=== PATIENT | female | born 1995 | race Caucasian/White ===

== ENCOUNTER 2017-01-01 18:16 | Emergency (ER) | payer OTHER ==
[2017-01-01 20:30] LABS: Basophils % (A) 0 %; CH 32.4; CHCM 35.8; Eosinophils # (A) 0.3 k/uL (0-0.7); Eosinophils % (A) 4 %; HCT 40.8 % (34.0-46.0); HDW 2.73; HGB 14.4 gm/dL (11.4-16.0); Luc % (Auto) 3; Lymphocytes # (A) 1.7 k/uL (1.0-4.8); Lymphocytes % (A) 21 %; MCH 32.1 pg (25.0-35.0); MCHC 35.4 g/dL (31.0-37.0); MCV 90.8 fL (80.0-100.0); Mean Platelet Volume 6.9; Monocytes # (A) 0.4 k/uL (0-1.0); Monocytes % (A) 6 %; Neutrophils # (A) 5.4 k/uL (1.3-7.7); Neutrophils % (A) 66 %; RBC 4.49 m/uL (3.80-5.40); RDW 12.5 % (11.5-15.5); WBC 8.1 k/uL (3.8-10.6); WBC (Perox) 8.04
[2017-01-01 20:39] LABS: Appearance,Urine Cloudy (Clear); Bacteria,Urine Occasional /hpf; Bilirubin,Urine Negative (Negative); Glucose,Urine (UA) Negative (Negative); Ketones,Urine Negative (Negative); Leukocyte Esterase,Urine Trace (Negative); Mucus,Urine Few /hpf; Nitrite,Urine Negative (Negative); PH, Urine 5.5 (5.0-8.0); Particle Count 12595; Protein,Urine 1+ (Negative); RBC,Urine >182 /hpf (0-5); Specific Gravity,Urine 1.019 (1.001-1.035); Squamous Epithelial Cell,Urine 7 /hpf (0-4); UA Billing (MACRO vs. MICRO) MICRO; Urobilinogen,Urine <2.0 mg/dL (<2.0); WBC,Urine 17 /hpf (0-5)
--- NOTE | 2017-01-01 21:05 | US ---
EXAMINATION TYPE: US transvaginal DATE OF EXAM: 01/01/2017 COMPARISON: NONE CLINICAL HISTORY: Pain. Bleeding for 10 days, left side discomfort. Hx of TECHNIQUE: Transvaginal (TV) with color Doppler. Date of LMP: 12/22/2016, EXAM MEASUREMENTS: Uterus: 7.8 x 6.8 x 4.6 cm Endometrial Stripe: 0.5 cm Right Ovary: 2.4 x 2.5 x 2.0 cm Left Ovary: 2.6 x 1.5 x 1.5 cm 1. Uterus: Anteverted wnl 2. Endometrium: wnl 3. Right Ovary: hypoechoic lesion - 1.4 x 1.5 x 1.3 cm 4. Left Ovary: follicles Spectral, color and waveform doppler imaging shows good arterial and venous flow within the ovaries ; there is no evidence for ovarian torsion. 5. Bilateral Adnexa: free fluid seen adjacent to RO 6. Posterior cul-de-sac: free fluid IMPRESSION: There is a small amount of free fluid in the cul-de-sac. Normal uterus and endometrium. B ilateral follicular ovarian cysts.
--- NOTE | 2017-01-01 21:17 | ED ---
Female Urogenital HPI - General Chief complaint: Urogenital Stated complaint: Vaginal Bleeding Time Seen by Provider: 01/01/17 19:29 Source: patient, RN notes reviewed, old records reviewed Mode of arrival: ambulatory Limitations: no limitations - History of Present Illness Initial comments: This is a 21-year-old female presenting to the emergency department with chief complaint of vaginal bleeding for the past 10 days. Patient reports that she's been feeling a little lightheaded. She reports that she's never had a period last this long. Patient states that she has been in the past. Denies any chest at this time. Patient reports no fever or chills, abdominal pain besides cramping, nausea or vomiting or changes in urination or bowel movements. Last Menstrual Period: 12/22/16 - Related Data Previous Rx's Medication Instructions Recorded Ferrous Sulfate [Feosol] 325 mg PO DAILY #30 tab 01/01/17 Allergies Allergy/AdvReac Type Severity Reaction Status Date / Time No Known Allergies Allergy Verified 01/01/17 19:18 Review of Systems ROS Statement: Those systems with pertinent positive or pertinent negative responses have been documented in the HPI. ROS Other: All systems not noted in ROS Statement are negative. Past Medical History Past Medical History: No Reported History History of Any Multi-Drug Resistant Organisms: None Reported Past Surgical History: Section Past Anesthesia/Blood Transfusion Reactions: Unable to Obtain Past Psychological History: Anxiety Smoking Status: Current every day smoker Past Alcohol Use History: None Reported Past Drug Use History: Marijuana - Past Family History Mother History Unknown: Yes Family Medical History: Hypertension General Exam - General Exam Comments Initial Comments: Well-appearing 21-year-old female. No acute distress. Limitations: no limitations General appearance: alert, in no apparent distress Head exam: Present: atraumatic, normocephalic, normal inspection Eye exam: Present: normal appearance, PERRL, EOMI. Absent: scleral icterus, conjunctival injection, periorbital swelling ENT exam: Present: normal exam, mucous membranes moist Neck exam: Present: normal inspection. Absent: tenderness, meningismus, lymphadenopathy Respiratory exam: Present: normal lung sounds bilaterally. Absent: respiratory distress, wheezes, rales, rhonchi, stridor Cardiovascular Exam: Present: regular rate, normal rhythm, normal heart sounds. Absent: systolic murmur, diastolic murmur, rubs, gallop, clicks GI/Abdominal exam: Present: soft, normal bowel sounds. Absent: distended, tenderness, guarding, rebound, rigid Extremities exam: Present: normal inspection, full ROM, normal capillary refill. Absent: tenderness, pedal edema, joint swelling, calf tenderness Back exam: Present: normal inspection Neurological exam: Present: alert, oriented X3, CN II-XII intact Psychiatric exam: Present: normal affect, normal mood Skin exam: Present: warm, dry, intact, normal color. Absent: rash Course Vital Signs 01/01/17 01/01/17 18:36 21:48 Temperature 99.2 F 98.1 F Pulse Rate 107 H 86 Respiratory 18 16 Rate Blood Pressure 130/73 101/61 O2 Sat by Pulse 98 98 Oximetry Medical Decision Making - Medical Decision Making This is a 21-year-old female presenting to the emergency department with chief complaint of vaginal bleeding for the past 10 days. Patient reports that she's been feeling a little lightheaded. She reports that she's never had a period last this long. Patient states that she has been in the past. Denies any chest at this time. Patient reports no fever or chills, abdominal pain besides cramping, nausea or vomiting or changes in urination or bowel movements. Pt CBC was normal, stable hemaglobin and vital signs. Patient transvaginal US was unremarkable. Advised to follow up with PCP and PBGYN. Patient understands treatment plan and will comply. - Lab Data Result diagrams: 01/01/17 20:10 Lab Results 01/01/17 01/01/17 01/01/17 Range/Units 20:10 20:10 20:10 WBC 8.1 (3.8-10.6) k/uL RBC 4.49 (3.80-5.40) m/uL Hgb 14.4 (11.4-16.0) gm/dL Hct 40.8 (34.0-46.0) % MCV 90.8 (80.0-100.0) fL MCH 32.1 (25.0-35.0) pg MCHC 35.4 (31.0-37.0) g/dL RDW 12.5 (11.5-15.5) % Plt Count 251 (150-450) k/uL Neutrophils % 66 % Lymphocytes % 21 % Monocytes % 6 % Eosinophils % 4 % Basophils % 0 % Neutrophils # 5.4 (1.3-7.7) k/uL Lymphocytes # 1.7 (1.0-4.8) k/uL Monocytes # 0.4 (0-1.0) k/uL Eosinophils # 0.3 (0-0.7) k/uL Basophils # 0.0 (0-0.2) k/uL Urine Color Light Red Urine Appearance Cloudy H (Clear) Urine pH 5.5 (5.0-8.0) Ur Specific [place] 1.019 (1.001-1.035) Urine Protein 1+ H (Negative) Urine Glucose (UA) Negative (Negative) Urine Ketones Negative (Negative) Urine Blood Large H (Negative) Urine Nitrite Negative (Negative) Urine Bilirubin Negative (Negative) Urine Urobilinogen <2.0 (<2.0) mg/dL Ur Leukocyte Esterase Trace H (Negative) Urine RBC >182 H (0-5) /hpf Urine WBC 17 H (0-5) /hpf Ur Squamous Epith Cells 7 H (0-4) /hpf Urine Bacteria Occasional H (None) /hpf Urine Mucus Few H (None) /hpf Urine HCG, Qual Detected (Not Detectd) - Radiology Data Radiology results: report reviewed Transvaginal US is unremarkable. Disposition Clinical Impression: Abnormal uterine bleeding Disposition: HOME SELF-CARE Condition: Good Instructions: Dysfunctional Uterine Bleeding (ED) Additional Instructions: Patient advised to rest, remain hydrated. Take the iron vitamins. Return to the emergency department if any alarming signs or symptoms occur. Follow-up with your primary care provider within the next week if symptoms continue to persist. Prescriptions: Ferrous Sulfate [Feosol] 325 mg PO DAILY #30 tab Referrals: None,Stated [Primary Care Provider] - 1-2 days Susan Devries DO [Doctor of Osteopathic Medicine] - 1-2 days Time of Disposition: 21:36
[2017-01-01 21:49] VITALS: BP 101/61; PULSE 86; RESP 16; TEMP 98.1
== END 2017-01-01 22:07 | disposition home or self-care (01) ==
LOC: EC 18:16
DX: N93.9 Abnormal uterine and vaginal bleeding, unspecified (principal); F17.200 Nicotine dependence, unspecified, uncomplicated
CPT/HCPCS: 36415; 76830; 81001; 81025; 85025; 93975; 99284

== ENCOUNTER 2017-10-12 06:11 | Inpatient (IN) | payer BC ==
--- NOTE | 2017-10-11 21:15 | P.HPOB ---
History of Present Illness H&P Date: 10/11/17 Chief Complaint: Scheduled repeat section This is a 21 y.o. female, 2, para 1, with an estimated date of confinement of 10/15/2017, estimated gestational age of 39-4/7 weeks, who presents for scheduled repeat section. Her has been complicated by gestational diabetes diet controlled. She did have a gap in her care from 31 to 38 weeks, stating she was busy working. labs: Hepatitis B surface antigen-neg Rubella-immune Blood type-O neg Antibody screen-neg RPR-NR HIV-NR Hemoglobin-12.7 Quad screen-neg Random glucose-75 OB US-normal anatomy 1 hr. GTT-146; 3 hr. GTT-2 values high Rhogam given at 28 weeks GBS-neg OB Hx: . 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 Review of Systems Constitutional: Denies chills, Denies fever Eyes: denies blurred vision, denies pain Ears, nose, mouth and throat: Denies headache, Denies sore throat Cardiovascular: Denies chest pain, Denies shortness of breath Respiratory: Denies cough Gastrointestinal: Denies abdominal pain, Denies diarrhea, Denies nausea, Denies vomiting Genitourinary: Reports pelvic pain, Reports Musculoskeletal: Reports low back pain Integumentary: Denies pruritus, Denies rash Neurological: Denies numbness, Denies weakness Psychiatric: Denies anxiety, Denies depression Past Medical History Additional Past Medical History / Comment(s): Gestational diabetes-diet controlled History of Any Multi-Drug Resistant Organisms: None Reported Past Surgical History: Section Past Anesthesia/Blood Transfusion Reactions: No Reported Reaction Past Psychological History: No Psychological Hx Reported Smoking Status: Current every day smoker Past Alcohol Use History: None Reported Past Drug Use History: None Reported - Past Family History Mother History Unknown: Yes Family Medical History: Hypertension Medications and Allergies Home Medications Medication Instructions Recorded Confirmed Type Pnv No.95/Ferrous Fum/Folic AC 1 each PO DAILY 10/08/17 10/08/17 History [ Multivitamin Tablet] Allergies Allergy/AdvReac Type Severity Reaction Status Date / Time No Known Allergies Allergy Verified 10/08/17 15:00 Exam Osteopathic Statement: *. No significant issues noted on an osteopathic structural exam other than those noted in the History and Physical/Consult. HEENT: within normal limits Heart: regular rate and rhythm Lungs: clear to auscultation bilaterally Abdomen: soft, , non-tender Cervix: 1 cm/uneffaced/-2 heart tones: reactive Extremities: Neg. Adolph's. Assessment and Plan (1) 39 weeks gestation of Status: Acute Code(s): Z3A.39 - 39 WEEKS GESTATION OF SNOMED Code( s): 52018569 (2) Previous delivery affecting Status: Acute Code(s): O34.219 - MATERNAL CARE FOR UNSP TYPE SCAR FROM PREVIOUS DEL SNOMED Code(s): 070735327 (3) Gestational diabetes mellitus (GDM) Status: Acute Code(s): O24.419 - GESTATIONAL DIABETES MELLITUS IN , UNSP CONTROL SNOMED Code(s): 56941428 Plan: Proceed with repeat section. I have discussed the risks, benefits, and alternative therapies for the above- mentioned procedure and for both sedation/anesthesia as well as necessary blood products administration, if indicated, as they pertain to this patient. The patient has indicated her understanding and acceptance of the risks and procedures discussed.
[2017-10-12] MEDS ORDERED: ceFAZolin IN SWFI 2 GM/20 ML SYRINGE IVP ONE (06:20)
[2017-10-12] MEDS ORDERED: LACTATED RINGERS 1,000 ML IV ONE (06:20)
[2017-10-12] MEDS ORDERED: LIDOCAINE 1% 20 ML VIAL (10MG/ML) FOR IV START INTRADERMA PRN (06:20)
[2017-10-12] MEDS ORDERED: CITRIC ACID-SODIUM CITRATE 15 ML CUP PO ONE (06:20)
[2017-10-12 06:35] VITALS: BMI 27.4
[2017-10-12 06:43] LABS: Glucose,Whole Blood 107 mg/dL (75-99)
[2017-10-12 06:51] LABS: Basophils % (A) 0 %; Eosinophils # (A) 0.2 k/uL (0-0.7); Eosinophils % (A) 1 %; HCT 35.9 % (34.0-46.0); Hyperchromasia Slight; Lymphocytes % (A) 16 %; MCH 32.6 pg (25.0-35.0); MCHC 36.3 g/dL (31.0-37.0); MCV 89.8 fL (80.0-100.0); Mean Platelet Volume 8.2; Monocytes # (A) 0.6 k/uL (0-1.0); Monocytes % (A) 5 %; Neutrophils % (A) 76 %; Platelet Count 231 k/uL (150-450); RBC 3.99 m/uL (3.80-5.40); RDW 13.5 % (11.5-15.5); WBC 13.1 k/uL (3.8-10.6)
[2017-10-12] MEDS: LACTATED RINGERS 1,000 ML IV SCH ×2 (07:47→14:44)
[2017-10-12] MEDS ORDERED: ONDANSETRON 4 MG/2 ML VIAL ONE (07:55)
[2017-10-12] MEDS ORDERED: NALBUPHINE 10 MG/ML AMPUL ONE (07:55)
[2017-10-12] MEDS ORDERED: OXYTOCIN 10 UNIT/ML 1 ML VIAL ONE (07:55)
[2017-10-12] MEDS ORDERED: MORPHINE SULFATE (PF) 0.3 MG/0.3 ML SYR ONE (07:55)
[2017-10-12] MEDS ORDERED: KETOROLAC 30 MG/ML 1 ML VIAL ONE (07:55)
[2017-10-12] MEDS ORDERED: ONDANSETRON 4 MG/2 ML VIAL IVP PRN ×2 (08:26→09:49)
[2017-10-12] MEDS ORDERED: KETOROLAC 30 MG/ML 1 ML VIAL IVP PRN (08:26)
[2017-10-12] MEDS ORDERED: MORPHINE SULFATE/PF 10MG/10ML VL IVP PRN (08:26)
[2017-10-12] MEDS ORDERED: diphenhydrAMINE 50 MG/ML 1 ML VIAL IVP PRN ×3 (08:26→09:49)
[2017-10-12] MEDS ORDERED: NALOXONE 0.4 MG/ML 1 ML VIAL IV PRN ×2 (08:26→09:49)
--- NOTE | 2017-10-12 08:43 | P.OP ---
Date of Procedure: 10/12/17 Preoperative Diagnosis: 1. Intrauterine at 39-4/7 weeks. 2. History of previous section. 3. Gestational diabetes. Postoperative Diagnosis: Same Procedure(s) Performed: Repeat low transverse section Anesthesia: spinal (Duramorph) Surgeon: Susan Devries Lock Installer #1: Juan Dukes Estimated Blood Loss (ml): 350 Pathology: other (Placenta) Condition: stable Disposition: floor Indications for Procedure: This is a 21-year-old female 2 para 1 at 39-4/7 weeks who presents for scheduled repeat section secondary to history of previous section. She also had complicated by gestational diabetes diet controlled. I have discussed the risks, benefits, and alternative therapies for the above- mentioned procedure and for both sedation/anesthesia as well as necessary blood products administration, if indicated, as they pertain to this patient. The patient has indicated her understanding and acceptance of the risks and procedures discussed. Operative Findings: A viable male infant is noted in the vertex presentation with scores of 9 at 1 minute and 9 at 5 minutes and weight of 5 lbs. 15 oz. Nuchal cord times one was noted. Normal uterus tubes and ovaries are noted. Description of Procedure: The patient is taken to the operating room where she is placed in the dorsal supine position with leftward tilt after spinal Duramorph anesthesia is given. She is prepped and draped in the normal sterile fashion. Skin was tested and found to be adequately anesthetized. A Pfannenstiel skin incision was made with a scalpel through the previous laparotomy scar. A second knife was used to carry the incision down to the underlying layer of fascia. The fascia was nicked in the midline with a scalpel and then extended laterally bilaterally with Reynoso scissors. The anterior lip of the fascia was grasped with 2 Deni clamps and then dissected off the underlying rectus muscle in the midline with Reynoso scissors. The inferior aspect of the fascial incision was grasped with 2 Deni clamps and dissected off the underlying rectus muscle and the midline with Reynoso scissors. Next the peritoneum layer was tented up with 2 hemostats and then entered sharply with the scalpel. The incision is extended superiorly and inferiorly with Metzenbaum scissors. Next a DeLee retractor is placed. The vesicouterine peritoneum is entered sharply with Metzenbaum scissors and extended laterally bilaterally with Metzenbaum scissors and then the bladder flap is pushed inferiorly. The lower uterine segment is incised in transverse fashion with the scalpel and then bluntly entered with a hemostat. Clear fluid is noted. The incision was then extended laterally bilaterally with 2 fingers. Next the infant's head is delivered through the incision. Nose and mouth are bulb suctioned. The remainder of the is easily delivered and placed on mother's abdomen. Cord is clamped and cut. Infant is taken to warmer by nursing staff. Uterine fundus is gently massaged and placenta is delivered manually. Uterus is exteriorized and cleared of all clots and debris. Uterine incision is closed with 0 Vicryl suture in a running locked fashion. A second layer of 0 Vicryl suture is used in a running fashion for hemostasis. Once adequate hemostasis as assured, the posterior cul-de-sac is suctioned of all clots and debris. Uterus is returned to the abdomen. Incision is noted to be hemostatic. Peritoneal layer is closed with 0 Vicryl suture in a running fashion. Muscle layer is reapproximated with 0 Vicryl suture in interrupted fashion. Fascia layer is then closed with 0 PDS suture with 2 sutures meeting in the midline and the knots buried in either side and in the midline. The subcutaneous tissue was then closed with 2-0 Vicryl suture. Skin layer was then closed with cleve. All sponge and needle counts are correct. The patient is taken to recovery room in stable condition.
[2017-10-12] MEDS ORDERED: SIMETHICONE 80 MG CHEWABLE PO PRN (09:49)
[2017-10-12] MEDS ORDERED: Acetaminophen-Codeine 300-30mg TAB PO PRN (09:49)
[2017-10-12] MEDS ORDERED: LANOLIN CREAM 5 GM TUBE TOPICAL PRN (09:49)
[2017-10-12] MEDS ORDERED: diphenhydrAMINE 50 MG CAP PO PRN (09:49)
[2017-10-12] MEDS ORDERED: ZOLPIDEM 5 MG TAB PO PRN (09:49)
[2017-10-12] MEDS ORDERED: ACETAMINOPHEN TAB 325 MG TAB PO PRN (09:49)
[2017-10-12] MEDS ORDERED: OXYTOCIN 20 UNITS/1000 ML NS 1,000 ML IV SCH (09:49)
[2017-10-12] MEDS ORDERED: diphenhydrAMINE 25 MG CAP PO PRN (09:49)
[2017-10-12] MEDS ORDERED: METOCLOPRAMIDE 5 MG/ML 2 ML VIAL IVP PRN (09:49)
[2017-10-12 11:34] LABS: Hemoglobin A1C 4.6 % (4.0-6.0)
[2017-10-12] MEDS: KETOROLAC 30 MG/ML 1 ML VIAL IVP PRN ×2 (14:42→21:20)
[2017-10-12] MEDS: SENNOSIDES-DOCUSATE SODIUM 1 EACH TAB PO SCH ×2 (14:53→21:19)
[2017-10-12] MEDS ORDERED: DIPH,PERTUS(ACELL)TETVAC-LF 0.5 ML VIAL IM ONE (15:04)
[2017-10-12] MEDS ORDERED: PNEUMOCOCCAL VACC-PNEUMOVAX 23 25 MCG/0.5 ML VIAL IM ONE (15:04)
[2017-10-13] MEDS: LACTATED RINGERS 1,000 ML IV SCH ×2 (02:46→09:14)
[2017-10-13] MEDS: KETOROLAC 30 MG/ML 1 ML VIAL IVP PRN ×2 (06:10→14:38)
--- NOTE | 2017-10-13 06:56 | P.PN ---
Progress Note - Text Progress Note Date: 10/13/17 Postoperative day 1 status post section under spinal/epidural anesthesia and intrathecal Duramorph for postoperative analgesia.The patient is doing well, there is mild generalized skin itching. There are no other anesthesia related complications. Further management as per the patient primary team.
--- NOTE | 2017-10-13 08:39 | P.PNOBGPC ---
Subjective - Subjective Principal diagnosis: Status post repeat section postoperative day #1 Interval history: Patient is doing okay. Her pain is well-controlled. She states she is passing flatus and bowel movement. She is bottle feeding. Lochia is decreasing. Patient reports: Reports appetite normal, Reports voiding normally, Reports pain well controlled, Reports ambulating normally [place]: doing well, bottle feeding Objective - Vital Signs Latest vital signs: Vital Signs Temp Pulse Resp BP Pulse Ox 10/13/17 06:00 20 10/13/17 04:00 98.8 F 83 20 100/65 98 10/13/17 02:00 16 10/13/17 00:00 97.8 F 72 18 98/60 97 10/12/17 22:00 16 10/12/17 20:22 96 10/12/17 20:00 98.0 F 79 18 102/68 96 10/12/17 18:00 16 10/12/17 17:00 98 10/12/17 16:00 86 18 101/61 10/12/17 14:00 16 10/12/17 13:07 95 10/12/17 12:00 97.4 F L 75 18 106/57 10/12/17 10:43 68 16 110/64 99 10/12/17 10:13 67 16 104/64 99 10/12/17 09:43 64 18 111/69 97 10/12/17 09:28 98.0 F 78 18 101/64 99 10/12/17 09:27 18 97 10/12/17 09:13 76 16 106/67 98 10/12/17 08:58 71 16 109/69 99 10/12/17 08:43 97.0 F L 86 16 100 Intake and Output 10/12/17 10/13/17 10/13/17 22:59 06:59 14:59 Intake Total 1700 Output Total 300 500 Balance -300 1200 Intake: Intake, IV Titration 700 Amount Lactated Ringers 1,000 ml 700 @ 125 mls/hr IV .Q8H [facility] Rx#:[id number] Oral 1000 Output: Urine 300 500 Other: # Voids 1 2 - Exam Extremities: Present: normal. Absent: tenderness Abdomen: Present: normal appearance, soft (Faint bowel sounds 4). Absent: distention, tenderness Incision: Present: normal, dry, intact Uterus: Present: normal, firm. Absent: tenderness Assessment and Plan Assessment: Impression is status post repeat low transverse section postoperative day #1. (1) 39 weeks gestation of Current Visit: Yes Status: Acute Code(s): Z3A.39 - 39 WEEKS GESTATION OF SNOMED Code(s): 53431160 (2) Previous delivery affecting Current Visit: Yes Status: Acute Code(s): O34.219 - MATERNAL CARE FOR UNSP TYPE SCAR FROM PREVIOUS DEL SNOMED Code(s): 117567975 (3) Gestational diabetes mellitus (GDM) Current Visit: Yes Status: Acute Code(s): O24.419 - GESTATIONAL DIABETES MELLITUS IN , UNSP CONTROL SNOMED Code(s): 87265185 Plan: Will advance diet as tolerated. Encouraged ambulation.
[2017-10-13 08:55] LABS: Basophils % (A) 0 %; Eosinophils # (A) 0.1 k/uL (0-0.7); Eosinophils % (A) 1 %; HCT 31.7 % (34.0-46.0); HGB 10.6 gm/dL (11.4-16.0); Lymphocytes # (A) 1.3 k/uL (1.0-4.8); Lymphocytes % (A) 11 %; MCH 31.2 pg (25.0-35.0); MCHC 33.5 g/dL (31.0-37.0); MCV 92.9 fL (80.0-100.0); Mean Platelet Volume 9.1; Monocytes # (A) 0.6 k/uL (0-1.0); Monocytes % (A) 5 %; Neutrophils # (A) 9.3 k/uL (1.3-7.7); Neutrophils % (A) 81 %; Platelet Count 174 k/uL (150-450); RBC 3.41 m/uL (3.80-5.40); RDW 13.6 % (11.5-15.5); WBC 11.5 k/uL (3.8-10.6)
[2017-10-13] MEDS: SENNOSIDES-DOCUSATE SODIUM 1 EACH TAB PO SCH ×2 (11:13→20:19)
[2017-10-13] MEDS: Acetaminophen-Codeine 300-30mg TAB PO PRN (20:19)
[2017-10-14] MEDS: IBUPROFEN 600 MG TAB PO PRN ×2 (00:14→13:50)
[2017-10-14] MEDS: LACTATED RINGERS 1,000 ML IV SCH (02:45)
[2017-10-14 02:52] VITALS: TEMP 98.3
[2017-10-14] MEDS: Acetaminophen-Codeine 300-30mg TAB PO PRN (04:19)
--- NOTE | 2017-10-14 08:37 | P.DS ---
Providers Date of admission: 10/12/17 06:11 Expected date of discharge: 10/14/17 Attending physician: Susan Devries Primary care physician: Stated None - Discharge Diagnosis(es) (1) 39 weeks gestation of Current Visit: Yes Status: Acute (2) Previous delivery affecting Current Visit: Yes Status: Acute (3) Gestational diabetes mellitus (GDM) Current Visit: Yes Status: Acute Hospital Course: This is a 21-year-old female 2 para 1 at 39-4/7 weeks who presents for scheduled repeat section. She underwent a repeat low transverse section on 10/12/2017 and delivered a viable male infant in the vertex presentation with scores of 9 at 1 minute and 9 at 5 minutes and infant weight of 5 lbs. 15 oz. Her postoperative course has been uncomplicated. She is passing flatus but no bowel movement yet. She is ambulating. She is urinating without difficulty. Lochia is decreasing. She is bottle feeding. Pain is fairly well controlled with ibuprofen and Tylenol 3. Her vital signs are stable. Abdomen is soft with positive bowel sounds 4. Incision is clean dry and intact with cleve in place. Extremities show negative Homans. Impression is status post repeat section postoperative day #2. Plan is to discharge home today. Routine postoperative instructions are given. She is advised to follow up in the office in approximately one week for postoperative check. She will be given prescriptions for ibuprofen and Tylenol 3. She is advised to call the office if she has any further questions or concerns prior to her appointment time. Procedures: Repeat low transverse section on 10/12/2017 with delivery of a viable male infant Patient Condition at Discharge: Stable Plan - Discharge Summary Discharge Rx Participant: Yes New Discharge Prescriptions: New Acetaminophen-Codeine 300-30mg [Tylenol w/codeine #3] 1 each PO Q4HR PRN #30 tab PRN Reason: Mild Pain Ibuprofen [Motrin] 600 mg PO Q6HR PRN #60 tab PRN Reason: Mild Pain Or Fever >= 100.5 Continue Pnv No.95/Ferrous Fum/Folic AC [ Multivitamin Tablet] 1 each PO DAILY Discharge Medication List Pnv No.95/Ferrous Fum/Folic AC [ Multivitamin Tablet] 1 each PO DAILY [History] Acetaminophen-Codeine 300-30mg [Tylenol w/codeine #3] 1 each PO Q4HR PRN #30 tab 10/14/17 [Rx] Ibuprofen [Motrin] 600 mg PO Q6HR PRN #60 tab 10/14/17 [Rx] Follow up Appointment(s)/Referral(s): Susan Devries DO [Doctor of Osteopathic Medicine] - 6 Weeks Activity/Diet/Wound Care/Special Instructions: Instructions 1. Do not begin any exercise program for 3 weeks. 2. Do not resume sexual relations for 3 weeks or longer if uncomfortable. 3. You may take tub baths or showers at any time. 4. You may use tampons if desired after 3 weeks. 5. Keep the area of episiotomy (stitches) clean and dry. 6. If you are not nursing, wear a good fitting, supportive bra during the day and limit fluid intake for at least 1 week to prevent breast engorgement. 7. Call the office, [phone], within the next week to make appointment for your 6 week checkup if it has not already been made. 8. Report any of the following occurrences to the doctor promptly: a. Heavy, excessive bleeding b. Chills, fever c. Burning or frequency of urination d. Pain or redness and breasts if nursing e. Increasing pain or swelling in episiotomy (stitches). In addition to the above instructions, the following additional should be followed: 1. No heavy lifting or straining (exercising) until after 6 week checkup. 2. Keep abdominal incision clean and dry: You may wear a dressing if more comfortable. 3. Make office appointment for 10 days after going home or as instructed by her doctor. Discharge Disposition: HOME SELF-CARE
[2017-10-14] MEDS: SENNOSIDES-DOCUSATE SODIUM 1 EACH TAB PO SCH (08:55)
[2017-10-14 09:46] VITALS: BP 102/69; PULSE 84; RESP 18
== END 2017-10-14 16:50 | disposition home or self-care (01) | DRG 766 ==
LOC: 4FBP 06:11
PROVIDERS: ADMIT Obstetrics & Gynecology; ATTEND Obstetrics & Gynecology
PROC: 10D00Z1 Extraction of Products of Conception, Low, Open Approach (ICD-10-PCS; principal; 2017-10-12 08:00)
DX: O34.211 Maternal care for low transverse scar from previous cesarean delivery (principal); O24.420 Gestational diabetes mellitus in childbirth, diet controlled; F17.200 Nicotine dependence, unspecified, uncomplicated; Z37.0 Single live birth; O99.334 Smoking (tobacco) complicating childbirth; Z3A.39 39 weeks gestation of pregnancy; O69.81X0 Labor and delivery complicated by cord around neck, without compression, not applicable or unspecified; N85.8 Other specified noninflammatory disorders of uterus
CPT/HCPCS: 83036; 85025; 86850; 86900; 86901; 88307; 90715; 90732

== ENCOUNTER 2019-01-06 18:42 | Emergency (ER) | payer BC, OTHER ==
--- NOTE | 2019-01-06 19:44 | ED ---
General Adult HPI - General Chief complaint: Skin/Abscess/Foreign Body Stated complaint: rash on hands Time Seen by Provider: 01/06/19 18:57 Source: patient, RN notes reviewed Mode of arrival: ambulatory Limitations: no limitations - History of Present Illness Initial comments: 23-year-old female presents to the emergency determine for a chief of rash 3 months. Patient states the rash is on her palms and soles. Patient states she went to [facility] and was given doxycycline for this but it did not help. States this was several weeks ago. States that over the past 3 months seems to be worsening. Patient has not followed up with a dictionary editor. Denies any fevers or chills. Denies any other systemic symptoms such as abdominal pain, diarrhea, vomiting, shortness of breath, chest pain. Denies any recent travel. Denies concern for STDs. Patient has no other complaints at this time including shortness of breath, chest pain, abdominal pain, nausea or vomiting, headache, or visual changes. - Related Data Home Medications Medication Instructions Recorded Confirmed Pnv No.[id number]/Ferrous Fum/Folic AC 1 each PO DAILY 10/08/17 10/08/17 [ Multivitamin Tablet] Previous Rx's Medication Instructions Recorded Acetaminophen-Codeine 300-30mg 1 each PO Q4HR PRN #30 tab 10/14/17 [Tylenol w/codeine #3] Ibuprofen [Motrin] 600 mg PO Q6HR PRN #60 tab 10/14/17 Mupirocin 2% Oint [Bactroban 2% 1 applic TOPICAL TID 7 Days gm 01/06/19 Oint] Allergies Allergy/AdvReac Type Severity Reaction Status Date / Time No Known Allergies Allergy Verified 01/06/19 19:05 Review of Systems ROS Statement: Those systems with pertinent positive or pertinent negative responses have been documented in the HPI. ROS Other: All systems not noted in ROS Statement are negative. Past Medical History Past Medical History: No Reported History Additional Past Medical History / Comment(s): Gestational diabetes-diet controlled History of Any Multi-Drug Resistant Organisms: None Reported Past Surgical History: Section Past Anesthesia/Blood Transfusion Reactions: No Reported Reaction Past Psychological History: ADD/ADHD Smoking Status: Current every day smoker Past Alcohol Use History: None Reported Past Drug Use History: None Reported - Past Family History Mother History Unknown: Yes Family Medical History: Hypertension General Exam Limitations: no limitations General appearance: alert, in no apparent distress Head exam: Present: atraumatic, normocephalic, normal inspection Eye exam: Present: normal appearance, PERRL, EOMI. Absent: scleral icterus, conjunctival injection, periorbital swelling ENT exam: Present: normal exam, normal oropharynx, mucous membranes moist, TM's normal bilaterally, normal external ear exam, other (No intraoral lesions) Neck exam: Present: normal inspection, full ROM. Absent: tenderness, meningismus, lymphadenopathy Respiratory exam: Present: normal lung sounds bilaterally. Absent: respiratory distress, wheezes, rales, rhonchi, stridor Cardiovascular Exam: Present: regular rate, normal rhythm, normal heart sounds. Absent: systolic murmur, diastolic murmur, rubs, gallop, clicks GI/Abdominal exam: Present: soft, normal bowel sounds. Absent: distended, tenderness, guarding, rebound, rigid Neurological exam: Present: alert, oriented X3, CN II-XII intact, other (GCS 15) Psychiatric exam: Present: normal affect, normal mood Skin exam: Present: rash (crusting honey colored and erythematous rash noted to bilateral palms and soles. + scaling. negative nikolsky sign. small vesicles noted) Course Vital Signs 01/06/19 19:03 Temperature 98.3 F Pulse Rate 95 Respiratory 18 Rate Blood Pressure 107/80 O2 Sat by Pulse 99 Oximetry Medical Decision Making - Medical Decision Making 23-year-old female presents to the emergency department for a chief complaint of rash on bilateral palms and soles 3 months. Patient denies this ever happening prior. This history of eczema or psoriasis. States that she was seen at another emergency center put on doxycycline without relief. States that it has seemed to be worsening over the past 3 months. Denies fevers or chills. On exam there is honey colored crusts and scaling with erythema noted to the bilateral palms and soles. Discussed case with Dr. Ryan. At this time we would like to try mupirocin ointment first, likely impetigo. However I discussed with the patient that there are many other etiologies of this and it is very important that she follows up with a dictionary editor for possible biopsy if they're not sure what it is. Possible eczema vs psoriasis as well. Discussed returning here if she starts to develop any systemic symptoms which she does agree with. Disposition Clinical Impression: Rash and nonspecific skin eruption Disposition: HOME SELF-CARE Condition: Good Instructions (If sedation given, give patient instructions): Impetigo (ED), Acute Rash (ED) Additional Instructions: Please apply ointment as directed. Please follow-up with dictionary editor Dr. Fine or Dr. Chang as soon as possible. If needed follow up with primary care as well. Return here to the emergency department if you develop any worsening symptoms such as fevers. Prescriptions: Mupirocin 2% Oint [Bactroban 2% Oint] 1 applic TOPICAL TID 7 Days gm Is patient prescribed a controlled substance at d/c from ED?: No Referrals: Stacia Snell MD [REFERRING] - 1-2 days Sean Fine MD [STAFF PHYSICIAN] - 1-2 days Joe Chang MD [STAFF PHYSICIAN] - 1-2 days Time of Disposition: 19:41
[2019-01-06 19:49] VITALS: BP 116/70; PULSE 81; RESP 16; TEMP 98.2
== END 2019-01-06 19:48 | disposition home or self-care (01) ==
LOC: EC 18:42
DX: R21 Rash and other nonspecific skin eruption (principal); F17.200 Nicotine dependence, unspecified, uncomplicated
CPT/HCPCS: 99282